=== PATIENT | female | born 1970 | race Caucasian/White ===

== ENCOUNTER 2019-09-10 07:04 | Emergency (ER) | payer BC ==
[~2019-09-10] VITALS: Ht 172.7 cm; Wt 115.2 kg
[2019-09-10] MEDS ORDERED: IV NORMAL SALINE 1,000ML 1,000 ML IV ONE (07:30)
--- NOTE | 2019-09-10 07:36 | PHYS DOC ---
Past History Past Medical History: Anxiety, Asthma, Depression, Other Additional Past Medical Histor: chronic pain/neuropathy Past Surgical History: Other Smoking: Cigarettes Alcohol Use: None Drug Use: None Adult General HPI HPI Patient is a 48-year-old female who presents to the emergency department for evaluation. She states that when she woke up this morning, she just didn't feel well, and felt dizzy, like the room was spinning, which lasted about 10 minutes. Afterwards, the feeling subsided, and she got up and got dressed and went to work. While driving to work, she also didn't feel well. She felt generally dizzy. She presents to the emergency department at this time, she is not having any current dizziness, but just does not feel well. She did not have any vision changes or hearing changes at any time, did not have any headache, speech difficulty, numbness, weakness, or gait difficulty. She states she has a history of anxiety but it has never been this severe in the past. There are no alleviating or exacerbating factors to her symptoms otherwise. She denies current headache, chest pain, shortness of breath, or any other neurological symptoms at present. Review of Systems Review of Systems Constitutional: Denies fever or chills [] Eyes: Denies change in visual acuity, redness, or eye pain [] HENT: Denies nasal congestion or sore throat [] Respiratory: Denies cough or shortness of breath [] Cardiovascular: The patient denies any shortness of breath, chest pain, palpitations, or orthopnea [] GI: Denies abdominal pain, nausea, vomiting, bloody stools or diarrhea [] : Denies dysuria or hematuria [] Musculoskeletal: Denies back pain or joint pain [] Integument: Denies rash or skin lesions [] Neurologic: Denies headache, focal weakness or sensory changes [] Endocrine: Denies polyuria or polydipsia [] Psychiatric: Reports depression, denies suicidal ideation. All other systems were reviewed and found to be within normal limits, except as documented in this note. Current Medications Current Medications Current Medications Medications (Trade) Dose Ordered Sig/Benito Start Time Stop Time Status Last Admin Dose Admin Lorazepam (Ativan Inj) 1 mg 1X ONCE 09/10/19 07:30 09/10/19 07:31 UNV Sodium Chloride 1,000 ml @ 1,000 mls/hr 1X ONCE 09/10/19 07:30 09/10/19 08:29 UNV Allergies Allergies Allergies Coded Allergies Type Severity Reaction Last Updated Verified magnesium Allergy Unknown 10/28/14 Yes promethazine Allergy Unknown 10/28/14 Yes Physical Exam Physical Exam PHYSICAL EXAM: CONSTITUTIONAL: Well developed, well nourished HEAD: normocephalic, atraumatic EENT: PERRL, EOMI. Conjunctivae normal color, sclerae non-icteric; moist mucous membranes. There is no nystagmus. NECK: Supple, non-tender; no meningismus. There are no carotid bruits. LUNGS: Lungs CTA, breathing even and unlabored. Normal air movement. HEART: Regular rate and rhythm, no murmur CHEST: No deformity; non-tender ABDOMEN: The abdomen is soft, and non-tender, no masses or bruits. EXTREM: Normal ROM; no deformity, no calf tenderness. Normal pulses palpable in all extremities. There is no pedal edema. SKIN: No rash; no diaphoresis NEURO: Alert; normal speech and cognition; CN's grossly intact; strength grossly intact without focal deficit. Xovyin-aznd-onrbdf and heel yu testing is nor mal. Visual johnson are intact by confrontation. BACK: No CVA TTP. Current Patient Data Lab Results Laboratory Tests Test 09/10/19 08:05 White Blood Count 11.2 x10^3/uL Red Blood Count 4.59 x10^6/uL Hemoglobin 14.5 g/dL Hematocrit 43.8 % Mean Corpuscular Volume 95 fL Mean Corpuscular Hemoglobin 32 pg Mean Corpuscular Hemoglobin Concent 33 g/dL Red Cell Distribution Width 14.1 % Platelet Count 189 x10^3/uL Neutrophils (%) (Auto) 74 % Lymphocytes (%) (Auto) 20 % Monocytes (%) (Auto) 5 % Eosinophils (%) (Auto) 1 % Basophils (%) (Auto) 1 % Neutrophils # (Auto) 8.3 x10^3uL Lymphocytes # (Auto) 2.2 x10^3/uL Monocytes # (Auto) 0.5 x10^3/uL Eosinophils # (Auto) 0.1 x10^3/uL Basophils # (Auto) 0.1 x10^3/uL Sodium Level 143 mmol/L Potassium Level 4.0 mmol/L Chloride Level 106 mmol/L Carbon Dioxide Level 30 mmol/L Anion Gap 7 Blood Urea Nitrogen 11 mg/dL Creatinine 0.6 mg/dL Estimated GFR (Cockcroft-Gault) 107.6 BUN/Creatinine Ratio 18 Glucose Level 101 mg/dL Calcium Level 8.6 mg/dL Total Bilirubin 0.3 mg/dL Aspartate Amino Transf (AST/SGOT) 12 U/L Alanine Aminotransferase (ALT/SGPT) 16 U/L Alkaline Phosphatase 65 U/L Troponin I Quantitative < 0.017 ng/mL Total Protein 6.6 g/dL Albumin 3.3 g/dL Albumin/Globulin Ratio 1.0 Current Medications Medications (Trade) Dose Ordered Sig/Benito Route PRN Reason Start Time Stop Time Status Last Admin Dose Admin Sodium Chloride 1,000 ml @ 1,000 mls/hr 1X ONCE IV 09/10/19 07:30 09/10/19 08:29 DC 09/10/19 08:08 Lorazepam (Ativan Inj) 1 mg 1X ONCE IVP 09/10/19 07:30 09/10/19 07:36 DC 09/10/19 08:07 EKG EKG Normal sinus rhythm with a normal rate, normal axis, normal intervals, there are no acute ischemic ST/T changes.[] Radiology/Procedures Radiology/Procedures [] Course & Med Decision Making Course & Med Decision Making Pertinent Lab studies reviewed. (See chart for details) []9:05 AM: The patient's condition remains stable. She is feeling better and back to baseline without complaint at this time. I discussed test results, the need for close PCP follow-up, smoking cessation, and return precautions in detail. Dragon Disclaimer Dragon Disclaimer This electronic medical record was generated, in whole or in part, using a voice recognition dictation system. Departure Departure: Impression: Primary Impression: Dizziness Disposition: 01 HOME, SELF-CARE Condition: STABLE Referrals: CAMILLE AMADOR MD (PCP) Patient Instructions: Anxiety and Panic Attacks, Dizziness GELA GRIGSBY MD Sep 10, 2019 07:35
[2019-09-10 08:28] LABS: BASO # 0.1 x10^3/uL (0.0-0.2); BASO % 1 % (0-3); EOS # 0.1 x10^3/uL (0.0-0.7); EOS % 1 % (0-3); HEMATOCRIT 43.8 % (36.0-47.0); HEMOGLOBIN 14.5 g/dL (12.0-15.5); LYMPH # 2.2 x10^3/uL (1.0-4.8); LYMPH % 20 % (24-48); MEAN CORPUSCULAR HEMOGLOBIN 32 pg (25-35); MEAN CORPUSCULAR HGB CONC 33 g/dL (31-37); MEAN CORPUSCULAR VOLUME 95 fL (79-100); MONO # 0.5 x10^3/uL (0.0-1.1); MONO % 5 % (0-9); NEUT # 8.3 x10^3uL (1.8-7.7); NEUT % 74 % (31-73); PLATELET COUNT 189 x10^3/uL (140-400); RED BLOOD COUNT 4.59 x10^6/uL (3.50-5.40); RED CELL DISTRIBUTION WIDTH 14.1 % (11.5-14.5); WHITE BLOOD COUNT 11.2 x10^3/uL (4.0-11.0)
[2019-09-10 08:45] LABS: ALBUMIN 3.3 g/dL (3.4-5.0); CALCIUM 8.6 mg/dL (8.5-10.1); CREATININE 0.6 mg/dL (0.6-1.0); GFR 107.6; TOTAL BILIRUBIN 0.3 mg/dL (0.2-1.0); TOTAL PROTEIN 6.6 g/dL (6.4-8.2)
[2019-09-10 09:53] VITALS: BP 141/59
== END 2019-09-10 10:06 | disposition home or self-care (01) ==
LOC: ER 07:04
DX: R42 Dizziness and giddiness (principal); F41.9 Anxiety disorder, unspecified; J45.909 Unspecified asthma, uncomplicated; F32.9 Major depressive disorder, single episode, unspecified; F17.210 Nicotine dependence, cigarettes, uncomplicated; Z88.8 Allergy status to other drugs, medicaments and biological substances
CPT/HCPCS: 36415; 80053; 84484; 85025; 96361; 96374; 99285; J2060; J7030